=== PATIENT | female | born 1980 | race African-American/Black ===

== ENCOUNTER 2017-12-03 06:38 | Emergency (ER) | payer BC, MEDICAID, OTHER ==
[~2017-12-03] VITALS: Ht 172.7 cm; Wt 97.1 kg
[~2017-12-03 06:38] MED LIST: FERR-43 PO; PREN-88 PO
[2017-12-03] MEDS ORDERED: HYDROCODONE/ACETAMINOPHEN 5/325MG TABLET PO ONE (08:00)
[2017-12-03] MEDS ORDERED: KETOROLAC 60MG/2ML VIAL IM ONE (10:00)
[2017-12-03 10:10] VITALS: BP 139/86
== END 2017-12-03 10:25 | disposition home or self-care (01) ==
LOC: ER 07:03
DX: S92.421A Displaced fracture of distal phalanx of right great toe, initial encounter for closed fracture (principal); S00.83XA Contusion of other part of head, initial encounter; F17.200 Nicotine dependence, unspecified, uncomplicated; Z98.890 Other specified postprocedural states; Y08.89XA Assault by other specified means, initial encounter; Y93.89 Activity, other specified; Y92.89 Other specified places as the place of occurrence of the external cause; Y99.8 Other external cause status
CPT/HCPCS: 70150; 72100; 73562; 73630; 81025; 96372; 99284; J1885; Z7610

== ENCOUNTER 2018-11-06 00:03 | Emergency (ER) | payer MEDICAID ==
[~2018-11-06] VITALS: Ht 160 cm; Wt 73.0 kg
[2018-11-06] MEDS ORDERED: FAMOTIDINE 20MG/2ML VIAL IV STA (00:33)
[2018-11-06] MEDS ORDERED: SODIUM CHLORIDE 0.9% 1,000 ML IV ONE (00:33)
[2018-11-06] MEDS ORDERED: KETOROLAC 30MG/ML VIAL IV STA (00:33)
[2018-11-06] MEDS ORDERED: DIPHENHYDRAMINE 50MG/ML VIAL IV ONE (00:45)
[2018-11-06] MEDS ORDERED: PROCHLORPERAZINE MALEATE 10MG TABLET PO ONE (00:45)
[2018-11-06 01:26] LABS: BASOPHILS % 1.2 % (0.0-2.0); EOSINOPHILS % 7.3 % (0.0-5.0); HEMATOCRIT. 35.9 % (36.0-48.0); HEMOGLOBIN. 11.9 g/dL (12.0-16.0); LYMPHOCYTES % 36.2 % (20.0-50.0); MEAN CORPUSCULAR HEMOGLOBIN 27.3 pg (28.0-32.0); MEAN CORPUSCULAR VOLUME 82.5 fL (81.0-99.0); MEAN PLATELET VOLUME 8.2 fl (7.4-10.4); MONOCYTES % 6.7 % (2.0-8.0); NEUTROPHILS % 48.6 % (40.0-76.0); PLATELET 348 x1000/uL (130-400); RED BLOOD CELL COUNT 4.35 mill/uL (4.2-5.4); RED CELL DISTRIBUTION WIDTH 15.2 % (11.6-14.6)
[2018-11-06 01:27] LABS: CHLORIDE 105 mEq/L (98-107)
[2018-11-06 01:35] LABS: CLARITY URINE CLOUDY (CLEAR); COLOR URINE YELLOW (YELLOW); KETONES URINE NEGATIVE (NEGATIVE); LEUKOCYTE ESTERASE URINE TRACE (NEGATIVE); NITRITE URINE NEGATIVE (NEGATIVE); OCCULT BLOOD URINE NEGATIVE (NEGATIVE); PH URINE 6.5 (4.5-8.0); PROTEIN URINE NEGATIVE (NEGATIVE); SPECIFIC GRAVITY URINE 1.022 (1.005-1.030); UROBILINOGEN URINE 0.2 E.U./dL (0.2-1.0)
[2018-11-06 03:50] VITALS: BP 113/78
== END 2018-11-06 04:03 | disposition home or self-care (01) ==
LOC: ER 00:03
DX: R51 Headache (principal); R11.2 Nausea with vomiting, unspecified; H53.149 Visual discomfort, unspecified; I10 Essential (primary) hypertension; J44.9 Chronic obstructive pulmonary disease, unspecified
CPT/HCPCS: 36415; 70450; 71045; 80053; 81003; 81025; 83690; 85025; 93005; 96361; 96374; 96375; 99284; J1200; J1885; J3490; J7030; Q0164; Z7610

== ENCOUNTER 2021-04-20 17:44 | Emergency (ER) | payer MEDICAID, OTHER ==
[~2021-04-20] VITALS: Ht 170.2 cm; Wt 87.0 kg
[2021-04-20 18:07] VITALS: BP 144/98
== END 2021-04-20 21:30 | disposition left against medical advice (07) ==
LOC: ER 17:44
DX: H92.02 Otalgia, left ear (principal); Z53.21 Procedure and treatment not carried out due to patient leaving prior to being seen by health care provider